=== PATIENT | female | born 1995 | race Hispanic/Latino ===

== ENCOUNTER 2018-04-15 15:26 | Observation (INO) | payer MEDICAID ==
[~2018-04-15] VITALS: Ht 172.7 cm; Wt 77.1 kg
== END 2018-04-15 17:10 | disposition home or self-care (01) ==
LOC: LDH 15:26
PROVIDERS: ADMIT Obstetrics & Gynecology; ATTEND Obstetrics & Gynecology
DX: O36.8130 Decreased fetal movements, third trimester, not applicable or unspecified (principal); Z3A.38 38 weeks gestation of pregnancy
CPT/HCPCS: 59025; 76819; G0378 ×3

== ENCOUNTER 2018-04-25 15:27 | Observation (INO) | payer MEDICAID ==
[2018-04-25 15:58] LABS: APPEARANCE,URINE Clear (CLEAR); BILIRUBIN,URINE Negative (NEGATIVE); COLOR,URINE Yellow (YELLOW); GLUCOSE, URINE (UA) Negative (NEGATIVE); KETONES,URINE Trace mg/dL (NEGATIVE); LEUKOCYTE ESTERASE ,URINE Large (NEGATIVE); NITRATE,URINE Negative (NEGATIVE); OCCULT BLOOD,URINE Moderate (NEGATIVE); PROTEIN,URINE Negative (NEGATIVE); UROBILINOGEN,URINE 0.2 mg/dL (0.2-1.0)
[2018-04-25 16:12] LABS: BACTERIA,URINE Few /HPF (None Seen); RBC,URINE None Seen /HPF (0-1); WBC,URINE 26-50 /HPF (0-1)
== END 2018-04-25 16:30 | disposition home or self-care (01) ==
LOC: EDH 15:27 → LDH 15:36
PROVIDERS: ADMIT Obstetrics & Gynecology; ATTEND Obstetrics & Gynecology
DX: O26.893 Other specified pregnancy related conditions, third trimester (principal); R10.9 Unspecified abdominal pain; N89.8 Other specified noninflammatory disorders of vagina; Z3A.39 39 weeks gestation of pregnancy
CPT/HCPCS: 81001; 99285; G0378

== ENCOUNTER 2018-04-25 23:12 | Inpatient (IN) | payer MEDICAID ==
[~2018-04-25] VITALS: Ht 172.7 cm; Wt 78.0 kg
[2018-04-25 23:35] LABS: APPEARANCE,URINE Clear (CLEAR); BILIRUBIN,URINE Negative (NEGATIVE); COLOR,URINE Yellow (YELLOW); GLUCOSE, URINE (UA) Negative (NEGATIVE); KETONES,URINE Trace mg/dL (NEGATIVE); LEUKOCYTE ESTERASE ,URINE Small (NEGATIVE); NITRATE,URINE Negative (NEGATIVE); OCCULT BLOOD,URINE Trace (NEGATIVE); PROTEIN,URINE Negative (NEGATIVE); UROBILINOGEN,URINE 0.2 mg/dL (0.2-1.0)
[2018-04-26 00:13] LABS: BACTERIA,URINE None Seen /HPF (None Seen); RBC,URINE 0-1 /HPF (0-1); SQUAMOUS EPITHELIAL CELL,UR Few /HPF (0-2); WBC,URINE 0-1 /HPF (0-1)
[2018-04-26] MEDS ORDERED: LACTATED RINGERS 1000ML 1,000 ML IV PRN (00:38)
[2018-04-26] MEDS ORDERED: PROMETHAZINE HCL 25 MG/ML 1ML AMPULE IM PRN (00:45)
[2018-04-26] MEDS ORDERED: PROMETHAZINE HCL 25 MG/ML 1ML AMPULE IM SCH (00:45)
[2018-04-26] MEDS ORDERED: MEPERIDINE-PF 50 MG/ML SYG IM ONE (00:45)
[2018-04-26] MEDS ORDERED: LACTATED RINGERS 1000ML 1,000 ML IV ONE ×2 (00:47→07:28)
[2018-04-26] MEDS ORDERED: PROMETHAZINE HCL 25 MG/ML 1ML AMPULE IM ONE (00:47)
[2018-04-26 00:53] LABS: HEMATOCRIT 29.6 % (36-48); MEAN CORPUSCULAR HEMOGLOBIN 28.7 pg (27.0-33.0); MEAN CORPUSCULAR HGB CONC 33.7 g/dL (32.0-36.0); MEAN CORPUSCULAR VOLUME 85.1 fL (79-99); PLATELET COUNT (AUTO) 187 K/uL (130-400); RED BLOOD CELL COUNT(AUTO) 3.48 MIL/uL (4.00-5.50); WHITE BLOOD COUNT (AUTO) 15.2 K/uL (4.8-10.8)
[2018-04-26] MEDS ORDERED: LACTATED RINGERS 500 ML 500 ML IV PRN (03:15)
[2018-04-26] MEDS ORDERED: EPHEDRINE SULFATE 50 MG/ML AMPULE IVP PRN (03:15)
[2018-04-26] MEDS ORDERED: NALOXONE HCL 0.4 MG/1 ML ML IV PRN (03:15)
[2018-04-26] MEDS ORDERED: SODIUM CHLORIDE 0.9% 10 ML VIAL ONE (04:14)
[2018-04-26] MEDS ORDERED: OXYTOCIN 10 USP UNITS/ML ONE ×2 (07:28→19:51)
[2018-04-26] MEDS ORDERED: OXYTOCIN 10 USP UNITS/ML 20 UNIT in LACTATED RINGERS 1000ML 1,000 ML IV SCH (07:30)
[2018-04-26] MEDS: OXYTOCIN-LR 20 UNITS/1000 ML 1,000 ML IV SCH ×2 (07:45→19:59)
[2018-04-26] MEDS ORDERED: LIDOCAINE HCL MPF 1% 5ML VIAL ONE (17:54)
[2018-04-26] MEDS ORDERED: DIPH,PERTUSS(ACELL),TET VAC/PF 0.5 ML VIAL IM PRN (19:45)
[2018-04-26] MEDS ORDERED: WITCH HAZEL 1 PAD TP PRN (19:45)
[2018-04-26] MEDS ORDERED: ACETAMINOPHEN 325 MG TAB PO PRN (19:45)
[2018-04-26] MEDS ORDERED: LANOLIN 30GM OINTMENT TP PRN (19:45)
[2018-04-26] MEDS ORDERED: BENZOCAINE/LANOLIN/ALOE VERA 60 ML AEROSOL TP PRN (19:45)
[2018-04-26] MEDS ORDERED: MEASLES/MUMPS/RUBELLA VACCINE, LIVE 0.5 ML/VIAL SQ PRN (19:45)
[2018-04-26] MEDS: DOCUSATE SODIUM 100 MG CAP PO SCH (19:58)
[2018-04-26] MEDS: IBUPROFEN 600 MG TABLET PO PRN (19:59)
[2018-04-26 21:10] VITALS: BP 116/85
[2018-04-26 23:30] VITALS: BP 116/59
[2018-04-27] MEDS: IBUPROFEN 600 MG TABLET PO PRN ×3 (03:29→17:10)
[2018-04-27 03:30] VITALS: BP 103/53
[2018-04-27 07:36] VITALS: BP 100/68
[2018-04-27] MEDS: DOCUSATE SODIUM 100 MG CAP PO SCH ×2 (08:50→21:16)
[2018-04-27 11:32] VITALS: BP 105/62
[2018-04-27 15:33] VITALS: BP 103/68
[2018-04-27 19:30] VITALS: BP 114/80
[2018-04-27 23:33] VITALS: BP 109/67
[2018-04-28 03:15] VITALS: BP 102/70
[2018-04-28] MEDS: IBUPROFEN 600 MG TABLET PO PRN ×2 (03:24→09:02)
[2018-04-28 07:26] VITALS: BP 112/56
[2018-04-28 07:31] LABS: HEPATITIS Bs ANTIGEN SCREEN P Negative (Negative)
[2018-04-28] MEDS: DOCUSATE SODIUM 100 MG CAP PO SCH (09:01)
[2018-04-28 11:21] VITALS: BP 104/58
[2018-04-28 15:39] VITALS: BP 110/68
== END 2018-04-28 18:30 | disposition home or self-care (01) | DRG 560 ==
LOC: EDH 23:12 → LDH 23:22 → OBSVTOIN 23:22 → WSH 04-26 21:00
PROVIDERS: ADMIT Obstetrics & Gynecology; ATTEND Obstetrics & Gynecology
PROC: 10E0XZZ Delivery of Products of Conception, External Approach (ICD-10-PCS; principal; 2018-04-26)
PROC: 0W8NXZZ Division of Female Perineum, External Approach (ICD-10-PCS; 2018-04-26)
PROC: 3E0R3BZ Introduction of Anesthetic Agent into Spinal Canal, Percutaneous Approach (ICD-10-PCS; 2018-04-26)
PROC: 00HU33Z Insertion of Infusion Device into Spinal Canal, Percutaneous Approach (ICD-10-PCS; 2018-04-26)
PROC: 30233S1 Transfusion of Nonautologous Globulin into Peripheral Vein, Percutaneous Approach (ICD-10-PCS; 2018-04-27)
DX: O66.0 Obstructed labor due to shoulder dystocia (principal); O77.0 Labor and delivery complicated by meconium in amniotic fluid; Z37.0 Single live birth; Z3A.40 40 weeks gestation of pregnancy
CPT/HCPCS: 36415; 81001; 83033; 85027; 86592; 86850; 86900; 86901; 87340; 90715; 96360; 96361; A4314; A4606; G0378; J2550; J2590; J2791; J3490; J7120

== ENCOUNTER 2019-09-04 09:02 | Inpatient (IN) | payer BC, MEDICAID ==
[~2019-09-04] VITALS: Ht 172.7 cm; Wt 72.6 kg
[2019-09-04 09:30] LABS: APPEARANCE,URINE CLEAR (CLEAR); BILIRUBIN,URINE NEGATIVE (NEGATIVE); COLOR,URINE YELLOW (YELLOW); GLUCOSE, URINE (UA) NEGATIVE (NEGATIVE); KETONES,URINE NEGATIVE (NEGATIVE); LEUKOCYTE ESTERASE ,URINE NEGATIVE (NEGATIVE); NITRATE,URINE NEGATIVE (NEGATIVE); OCCULT BLOOD,URINE NEGATIVE (NEGATIVE); PH,URINE 7.5 (5.0-8.0); PROTEIN,URINE NEGATIVE (NEGATIVE); UROBILINOGEN,URINE 0.2 mg/dL (0.2-1.0)
[2019-09-04] MEDS ORDERED: LACTATED RINGERS 1000ML 1,000 ML IV ONE (09:45)
[2019-09-04 09:57] LABS: MEAN CORPUSCULAR HGB CONC 34.7 g/dL (32.0-36.0); MEAN CORPUSCULAR VOLUME 89.3 fL (79-99); NUCLEATED RED BLOOD CELLS 0.2 % (0.0-0.19); PLATELET COUNT (AUTO) 204 K/uL (130-400); RED BLOOD CELL COUNT(AUTO) 4.15 MIL/uL (4.00-5.50); RED CELL DISTRIBUTION WIDTH 13.7 % (11.0-15.5); WHITE BLOOD COUNT (AUTO) 10.4 K/uL (4.8-10.8)
[2019-09-04] MEDS ORDERED: LACTATED RINGERS 1000ML 1,000 ML IV PRN (09:58)
[2019-09-04] MEDS ORDERED: LACTATED RINGERS 500 ML 500 ML IV PRN (10:15)
[2019-09-04] MEDS ORDERED: EPHEDRINE SULFATE 50 MG/ML AMPULE IVP PRN (10:15)
[2019-09-04] MEDS ORDERED: NALOXONE HCL 0.4 MG/1 ML ML IV PRN (10:15)
[2019-09-04] MEDS ORDERED: OXYTOCIN 10 USP UNITS/ML 20 UNIT in LACTATED RINGERS 1000ML 1,000 ML IV SCH (10:15)
[2019-09-04] MEDS ORDERED: OXYTOCIN-LR 20 UNITS/1000 ML 1,000 ML IV ONE ×2 (10:52→15:41)
[2019-09-04] MEDS ORDERED: LIDOCAINE HCL 1% 20 ML VIAL ONE (11:48)
[2019-09-04] MEDS ORDERED: ACETAMINOPHEN-CODEINE 300/30MG TAB PO PRN (12:30)
[2019-09-04] MEDS ORDERED: WITCH HAZEL 1 PAD TP PRN (12:30)
[2019-09-04] MEDS ORDERED: LANOLIN 30GM OINTMENT TP PRN (12:30)
[2019-09-04] MEDS ORDERED: ACETAMINOPHEN 325 MG TAB PO PRN (12:30)
[2019-09-04] MEDS ORDERED: BENZOCAINE/LANOLIN/ALOE VERA 60 ML AEROSOL TP PRN (12:30)
[2019-09-04 14:00] VITALS: BP 109/61
--- NOTE | 2019-09-04 14:00 | NUR ---
REPORT RECEIVED FROM Keiko ROA RN AND PATIENT WAS TRANSFERED VIA W/C TO ROOM 114. PATIENT HAD STABLE VITAL SIGNS ON ADMISSION TO UNIT AND HAD VOIDED PRIOR TO TRANSFER. PATIENT INSTRUCTED ON NEED TO CALL WHEN FIRST NEEDING TO VOID AND VERBALIZED UNDERSTANDING. ORIENTED TO UNIT AND USE OF CALL LIGHT. PIV INFUSING WELL TO LEFT FOREARM.
--- NOTE | 2019-09-04 15:00 | NUR ---
ASSISTED UP TO BATHROOM AND VOIDED 700CC OF BLOOD TINGED URINE.
[2019-09-04] MEDS: IBUPROFEN 600 MG TABLET PO PRN ×2 (15:12→21:28)
[2019-09-04 16:00] VITALS: BP 111/65
--- NOTE | 2019-09-04 16:00 | NUR ---
VITAL SIGNS CONTINUE TO BE STABLE AND PATIENT DENIES PAIN.
[2019-09-04] MEDS ORDERED: FLU VACC QS2019-20 36MOS UP/PF 60 MCG/0.5 ML ML IM ONE (16:45)
[2019-09-04] MEDS ORDERED: DIPH,PERTUSS(ACELL),TET VAC/PF 0.5 ML VIAL IM ONE (16:45)
--- NOTE | 2019-09-04 18:30 | NUR ---
PATIENT HAD PIV REMOVED AND IV SITE WNL. PATIENT HOLDING BABY AND TALKING TO BABY AND BONDING WELL.
[2019-09-04 19:20] VITALS: BP 107/70
[2019-09-04] MEDS: DOCUSATE SODIUM 100 MG CAP PO SCH (21:24)
[2019-09-04 23:44] VITALS: BP 101/57
[2019-09-05 03:32] VITALS: BP 91/55
[2019-09-05 08:10] VITALS: BP 102/62
--- NOTE | 2019-09-05 08:10 | NUR ---
PATIENT ASSESSED AND REMAINS STABLE. VITAL SIGNS ARE WNL AND DENIES PAIN AT THIS TIME ONLY MILD CRAMPING. REINFORCED PAIN MANAGEMENT AND VERBALIZED UNDERSTANDING.
[2019-09-05] MEDS: DOCUSATE SODIUM 100 MG CAP PO SCH (08:48)
[2019-09-05] MEDS: IBUPROFEN 600 MG TABLET PO PRN (08:49)
--- NOTE | 2019-09-05 10:00 | NUR ---
DR. OSEI ROUNDED AND DISCHARGED PATIENT TO HOME. WAS MADE AWARE OF BABY BEING DISCHARGED TO HOME TODAY.
--- NOTE | 2019-09-05 11:45 | NUR ---
PATIENT WAS GIVEN DISCHARGE INSTRUCTIONS AND VERBALIZED UNDERSTANDING INSTRUCTIONS GIVEN. HAD QUESTIONS ON RHOGAM AND WAS GIVEN EXITC[employer] INFO ON RHOGAM INJECTION. PATIENT STABLE AND DENIES PAIN AT THIS TIME. INSTRUCTED TO BUY MOTRIN OVER THE COUNTER AND TAKE 3 TABS PRN PAIN./CRAMPING.
[2019-09-05 11:50] VITALS: BP 101/60
--- NOTE | 2019-09-05 13:25 | NUR ---
PATIENT WAS TAKEN VIA W/C TO [facility] C[facility]YING BABY IN ARMS. PATIENT DENIES PAIN AND HAS BEEN BONDING WITH BABY WELL BY HOLDING, TALKING AND BABY.
[2019-09-07 06:10] LABS: HEPATITIS Bs ANTIGEN SCREEN P Negative (Negative)
== END 2019-09-05 13:25 | disposition home or self-care (01) | DRG 807 ==
LOC: EDH 09:02 → OBSVTOIN 09:14 → LDH 09:14 → WSH 13:58
PROVIDERS: ADMIT Obstetrics & Gynecology; ATTEND Obstetrics & Gynecology
PROC: 10D07Z6 Extraction of Products of Conception, Vacuum, Via Natural or Artificial Opening (ICD-10-PCS; principal; 2019-09-04)
PROC: 3E0R3BZ Introduction of Anesthetic Agent into Spinal Canal, Percutaneous Approach (ICD-10-PCS; 2019-09-04)
PROC: 00HU33Z Insertion of Infusion Device into Spinal Canal, Percutaneous Approach (ICD-10-PCS; 2019-09-04)
PROC: 3E02340 Introduction of Influenza Vaccine into Muscle, Percutaneous Approach (ICD-10-PCS; 2019-09-04)
PROC: 3E0234Z Introduction of Serum, Toxoid and Vaccine into Muscle, Percutaneous Approach (ICD-10-PCS; 2019-09-04)
PROC: 3E0234Z Introduction of Serum, Toxoid and Vaccine into Muscle, Percutaneous Approach (ICD-10-PCS; 2019-09-04)
DX: O76 Abnormality in fetal heart rate and rhythm complicating labor and delivery (principal); Z37.0 Single live birth; Z3A.39 39 weeks gestation of pregnancy; Z23 Encounter for immunization; Z29.13 Encounter for prophylactic Rho(D) immune globulin
CPT/HCPCS: 36415; 81003; 83033; 85027; 86592; 86850; 86900; 86901; 87340; 90715; A4314; G0378; J2590; J2791; J7120; Q2035

== ENCOUNTER → 2021-06-18 | Outpatient (CLI) | payer BC ==
[~2021-06-18] MED LIST: ACET1TAB25 PO; HONEY 1 APPL/ML TUBE TP ONE; IBUP-2071 PO; LIDOCAINE HCL 4% LTA SOL 4 ML VIAL TP ONE; PREN-154 PO; SULF1TAB41 PO
== END | disposition home or self-care (01) ==
LOC: WHH 11:09
PROVIDERS: ATTEND Family Medicine
DX: T81.89XA Other complications of procedures, not elsewhere classified, initial encounter (principal); S21.002A Unspecified open wound of left breast, initial encounter; Y83.8 Other surgical procedures as the cause of abnormal reaction of the patient, or of later complication, without mention of misadventure at the time of the procedure; Y92.238 Other place in hospital as the place of occurrence of the external cause; X58.XXXA Exposure to other specified factors, initial encounter; Y93.89 Activity, other specified; Y92.89 Other specified places as the place of occurrence of the external cause; Y99.8 Other external cause status
CPT/HCPCS: 99215

== ENCOUNTER → 2021-06-25 | Outpatient (CLI) | payer BC ==
[~2021-06-25] MED LIST changes: -HONEY 1 APPL/ML TUBE TP ONE; -LIDOCAINE HCL 4% LTA SOL 4 ML VIAL TP ONE
== END | disposition home or self-care (01) ==
LOC: WHH 08:07
PROVIDERS: ATTEND Family Medicine
DX: T81.89XD Other complications of procedures, not elsewhere classified, subsequent encounter (principal); S21.002D Unspecified open wound of left breast, subsequent encounter; Y83.8 Other surgical procedures as the cause of abnormal reaction of the patient, or of later complication, without mention of misadventure at the time of the procedure; X58.XXXD Exposure to other specified factors, subsequent encounter
CPT/HCPCS: 99214

== ENCOUNTER 2022-04-25 14:09 | Emergency (ER) | payer BC ==
[~2022-04-25] VITALS: Ht 172.7 cm; Wt 59.0 kg
[~2022-04-25 14:09] MED LIST changes: +ACET-2079 PO; -ACET1TAB25 PO
[2022-04-25 15:17] LABS: BASOPHILS % (AUTO) 0.5 % (0.0-5.0); EOSINOPHILS % (AUTO) 0.5 % (0.0-8.0); HEMATOCRIT 38.6 % (36-48); LYMPHOCYTES % (AUTO) 19.5 % (21.0-51.0); MEAN CORPUSCULAR HEMOGLOBIN 29.1 pg (27.0-33.0); MEAN CORPUSCULAR HGB CONC 33.4 g/dL (32.0-36.0); MEAN CORPUSCULAR VOLUME 87.1 fL (79-99); MONOCYTES % (AUTO) 4.9 % (3.0-13.0); NEUTROPHILS % (AUTO) 74.3 % (40.0-77.0); PLATELET COUNT (AUTO) 185 K/uL (130-400); RED BLOOD CELL COUNT(AUTO) 4.43 MIL/uL (4.00-5.50); WHITE BLOOD COUNT (AUTO) 6.6 K/uL (4.8-10.8)
[2022-04-25 15:24] LABS: CREATININE 0.7 mg/dL (0.5-1.5); POTASSIUM 3.7 mmol/L (3.5-5.1)
[2022-04-25 15:29] LABS: ALBUMIN 4.2 g/dL (3.5-5.0); BILIRUBIN,TOTAL 0.3 mg/dL (0.2-1.0)
[2022-04-25 15:44] LABS: APPEARANCE,URINE CLEAR (CLEAR); BILIRUBIN,URINE NEGATIVE (NEGATIVE); COLOR,URINE STRAW (YELLOW); GLUCOSE, URINE (UA) NEGATIVE (NEGATIVE); KETONES,URINE NEGATIVE (NEGATIVE); LEUKOCYTE ESTERASE ,URINE NEGATIVE (NEGATIVE); NITRATE,URINE NEGATIVE (NEGATIVE); OCCULT BLOOD,URINE NEGATIVE (NEGATIVE); PROTEIN,URINE NEGATIVE (NEGATIVE); UROBILINOGEN,URINE 0.2 mg/dL (0.2-1.0)
[2022-04-25 15:48] LABS: HCG,QUAL RESULT NEGATIVE (NEGATIVE)
[2022-04-25] MEDS ORDERED: IOHEXOL 350 MG/ML 100ML INFUS..BTL IV ONE (16:35)
[2022-04-25] MEDS ORDERED: SOLU-MEDROL 125MG VIAL IVP ONE (17:00)
[2022-04-25] MEDS ORDERED: PRED20TA3 PO (17:03)
[2022-04-25] MEDS ORDERED: FLUT16H NASAL (17:03)
[2022-04-25 17:34] VITALS: BP 110/68
== END 2022-04-25 17:35 | disposition home or self-care (01) ==
LOC: EDH 14:09
DX: J32.9 Chronic sinusitis, unspecified (principal); R42 Dizziness and giddiness; Z79.899 Other long term (current) drug therapy
CPT/HCPCS: 36415; 70470; 80053; 81003; 81025; 85025; 96374; 99284; J2930; Q9967

== ENCOUNTER 2022-10-23 11:32 | Emergency (ER) | payer BC ==
[~2022-10-23] VITALS: Ht 170.2 cm; Wt 56.7 kg
[~2022-10-23 11:32] MED LIST changes: +FLUT16H NASAL; +PRED20TA3 PO
[2022-10-23 12:34] VITALS: BP 115/62
[2022-10-23] MEDS ORDERED: CYCLOBENZAPRINE HCL 10 MG TABLET PO ONE (13:00)
[2022-10-23] MEDS ORDERED: KETOROLAC 30MG VIAL (30MG/ML) IM ONE (13:00)
[2022-10-23 13:02] LABS: APPEARANCE,URINE CLEAR (CLEAR); BILIRUBIN,URINE NEGATIVE (NEGATIVE); COLOR,URINE COLORLESS (YELLOW); GLUCOSE, URINE (UA) NEGATIVE (NEGATIVE); KETONES,URINE NEGATIVE (NEGATIVE); LEUKOCYTE ESTERASE ,URINE NEGATIVE Leu/uL (NEGATIVE); NITRATE,URINE NEGATIVE (NEGATIVE); OCCULT BLOOD,URINE NEGATIVE (NEGATIVE); PH,URINE 7.5 (5.0-8.0); PROTEIN,URINE NEGATIVE (NEGATIVE); UROBILINOGEN,URINE 0.2 mg/dL (0.2-1.0)
[2022-10-23 13:05] LABS: HCG,QUALITATIVE URINE NEGATIVE (NEGATIVE)
[2022-10-23] MEDS ORDERED: IBUP-2070 PO (14:02)
[2022-10-23] MEDS ORDERED: CYCL5TAB PO (14:02)
== END 2022-10-23 14:19 | disposition home or self-care (01) ==
LOC: EDH 11:32
DX: R51.9 Headache, unspecified (principal); Z20.822 Contact with and (suspected) exposure to COVID-19
CPT/HCPCS: 99284; 87635; 87880; 87804 ×2; 81003; 81025; 96372; C9803; J1885